=== PATIENT | female | born 1945 | race Caucasian/White ===

== ENCOUNTER 2018-07-17 12:44 | Observation (INO) ==
[2018-07-17 14:09] LABS: Basophils % 0.4 %; Eosinophils # 0.1 K/mcL (0.0-0.6); Eosinophils % 1.4 %; Hematocrit 31.5 % (35.3-44.9); Hemoglobin 10.1 g/dL (11.5-15.4); Immature Granulocytes % 0.6 % (0-4); Lymphocytes # 1.4 K/mcL (0.6-4.6); Lymphocytes % 14.4 %; Mean Corpuscular HGB Conc 32.1 g/dL (31.6-35.5); Mean Corpuscular Hemoglobin 32.5 pg (28.0-33.3); Mean Corpuscular Volume 101.3 fL (83.0-100.0); Mean Platelet Volume 9.5 fL (9.4-12.4); Monocytes # 0.9 K/mcL (0.0-1.3); Monocytes % 9.3 %; Neutrophils # 7.1 K/mcL (1.6-8.9); Platelet Count 218 K/mcL (140-400); Red Blood Count 3.11 M/mcL (3.82-4.97); Segmented Neutrophils % 73.9 %
[2018-07-17 14:27] LABS: Calcium 9.9 mg/dL (8.6-10.3); Potassium 4.2 mEq/L (3.5-5.1)
--- NOTE | 2018-07-17 15:04 | Emergency Department Note ---
Disposition Clinical Impression: Pleural effusion on right Dyspnea Qualifiers: Dyspnea type: unspecified Qualified Code(s): R06.00 - Dyspnea, unspecified Disposition: Admitted As Inpatient Condition: Fair Referrals: Judson Wade DO [Primary Care Provider] - Forms: ED Satisfaction Letter Time of Disposition: 20:19 SOB HPI - General Chief Complaint: ED Shortness of Breath/Dyspnea Stated Complaint: SHORT OF BREATH Time Seen by Provider: 07/17/18 13:11 Source: patient, EMS Mode of arrival: EMS Limitations: physical limitation Nursing Notes Reviewed: Yes Vital Signs Reviewed: Yes - History of Present Illness Pt Subjective Complaint: shortness of breath Onset (ago): week(s) Context: other (Recent diagnosis of cancerous lesion his phone of the tibia. There apparently are some lesions in the long. She was just admitted at [facility] [place] and had the right lung drained of about 2 L of fluid. She felt good when [facility] ago but is progressively return.) Consistency/Duration: gradually worsening Improves with: other (Lying on the bed on her right side.) Worsens with: lying flat, exertion Known history of: COPD Associated symptoms: Reports: cough. Denies: fever, wheezing Treatment prior to arrival: none Cough present: Yes Cough Description: Non-Productive Cough Frequency: Intermittent - Related Data Home Medications Medication Instructions Recorded Confirmed Carvedilol [Coreg] 12.5 mg PO BID 04/01/15 02/27/16 Cetirizine HCl [Zyrtec] 10 mg PO 4XW 04/01/15 02/27/16 Citalopram [CeleXA] 80 mg PO QPM 04/01/15 02/27/16 Aspirin [Adult Low Dose Aspirin EC] 81 mg PO QAM 05/08/15 02/27/16 Cholecalciferol (Vitamin D3) 2,000 unit PO QAM 05/08/15 02/27/16 [Vitamin D3] Omeprazole [PriLOSEC] 40 mg PO DAILY 12/29/15 02/27/16 Spironolactone [Aldactone] 25 mg PO DAILY 12/29/15 07/17/18 Levothyroxine [Synthroid] 88 mcg PO 0630 02/27/16 02/27/16 Biotin 1,000 mcg PO DAILY 07/17/18 07/17/18 Gabapentin [Neurontin] 300 mg PO HS 07/17/18 07/17/18 Mesalamine [Apriso] 0.375 gm PO DAILY 07/17/18 07/17/18 Sevelamer [Renvela] 800 mg PO TIDWM 07/17/18 07/17/18 Sodium Bicarbonate 650 mg PO DAILY 07/17/18 07/17/18 Allergies Allergy/AdvReac Type Severity Reaction Status Date / Time Amoxicillin Allergy Severe Anaphylaxis Verified 06/17/16 08:10 Iodinated Contrast- Oral and Allergy Severe Anaphylaxis Verified 06/17/16 08:10 IV Dye ciprofloxacin [From Cipro] Allergy unknown Verified 06/17/16 08:10 Penicillins Allergy Hypotension Verified 06/17/16 08:10 Xbyshgj-Tlt-Nuv Reductase Allergy See Verified 07/17/18 12:46 Inhibitor Comments [Statins] sulfamethoxazole Allergy Anaphylaxis Verified 06/17/16 08:10 [From Bactrim] trimethoprim [From Bactrim] Allergy Anaphylaxis Verified 06/17/16 08:10 All systems ED: reviewed and negative except as stated. Constitutional: Denies: fever, chills ENT ED: Denies: ear pain, throat pain, congestion Cardiovascular: Denies: chest pain, palpitations Respiratory: Reports: cough, dyspnea Gastrointestinal: Denies: abdominal pain, nausea, vomiting Musculoskeletal: Denies: back pain Integumentary: Denies: rash Neurological: Denies: headache Past Medical History - Past Medical History Attestation: Yes The following information was validated with the patient. 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 Absent: scleral icterus, conjunctival injection - ENT ENT exam: normal exam, normal oropharynx, mucous membranes moist, normal external ear exam - Neck Neck exam: Present: normal inspection, full ROM, trachea midline. Absent: meningismus - Chest Chest inspection: Present: normal inspection, symmetric chest wall rise. Absent: tenderness - Respiratory Respiratory exam: Present: prolonged expiratory phase, other (Decreased breath sounds on the right). Absent: accessory muscle use - Cardiovascular Cardiovascular exam: Present: regular rate, normal rhythm, normal heart sounds - Abdominal Exam Abdominal exam: Present: soft, Non-Tender, normal bowel sounds - Extremities Exam Extremities exam: Absent: pedal edema - Neurological Exam Neurological exam: Present: alert, oriented X3 - Psychiatric Psychiatric exam: Present: normal affect, normal mood - Skin Skin exam: Present: warm, dry. Absent: rash Course Course Narrative: Patient presents with complaint shortness of breath. Significant dyspnea on exertion and she started feeling short of breath when laying down. She has to lay on her right side and she can breathe comfortably but if she lays on her back or on her left side she feels very short of breath. This sounds like an effusion. Patient just got out of [facility] after admission during which she had 2 L of fluid taken off that right long. She has decreased breath sounds on the right. We will go ahead and get a chest x-ray as well as the other lab workup to evaluate shortness of breath. I do not see any indication of infectious disease at this time. But will get cultures as well. Disposition will be based on diagnostic results and reevaluation. - Reevaluation(s) Reevaluation #1: Patient is resting comfortably on the bed on her right side. She has 3 L of oxygen on and her O2 sat is 97% with a pulse of 92. Chest x-ray shows a white out of the right lung she is in need to have this drained again. This is a full return of fluid in matter of a little over a week since it was drained last. She is supposed to be seeing the oncologist tomorrow at [facility] [place] to determine further evaluation and treatment. I think the best thing to do so transfer up to [facility] for thoracentesis and further management. Patient agrees. I spoke with the transfer center at [facility]. They are going to call back to help us arrange that transfer. Time: 15:11 Reevaluation #2: Transfer center called back. They have accepted the patient for transfer to the orthopedic/oncologist service. There are call back with a bed assignment but they think it might take some time to get the bed. We await their call. Time: 15:50 Reevaluation #3: Called [facility] back and they inform us that they are on diversion now and they did not have a bed and will probably not have a bed until tomorrow morning. The patient has already been accepted by her doctor up there, just AT this time. I do not think is appropriate for [facility] emergency department overnight. I spoke to the hospitalist arrange to get her admitted to the floor where she can be monitored and be in a more comfortable environment. When the bed is ready in the morning then we cannot see the transfer. I discussed with the patient and she is comfortable with the plan. Time: 20:19 - Consultations Consultation #1: Dr. Baca, hospitalist - I discussed the case with the hospitalist. He is accepted patient for admission. Time: 20:19 Vital Signs Temperature 98.9 F 07/17/18 12:47 Pulse Rate 96 07/17/18 12:47 Respiratory Rate 18 07/17/18 12:47 Blood Pressure 120/54 07/17/18 12:47 O2 Sat by Pulse Oximetry 99 07/17/18 12:47 Temperature 98.9 F 07/17/18 12:47 Pulse Rate 85 07/17/18 19:49 Respiratory Rate 18 07/17/18 19:49 Blood Pressure 118/56 07/17/18 19:49 O2 Sat by Pulse Oximetry 97 07/17/18 19:49 Oxygen Delivery Oxygen Delivery Room Air Shortness of Breath/Dyspnea - Medical Records Medical records reviewed: Yes I reviewed the patient's medical records. - Lab Data Lab results reviewed: Yes I reviewed the patient's lab results. Result diagrams: 07/17/18 14:03 07/17/18 14:03 Lab Results 07/17/18 07/17/18 07/17/18 Range/Units 14:03 14:03 14:03 WBC 9.6 (4.3-11.1) K/mcL RBC 3.11 L (3.82-4.97) M/mcL Hgb 10.1 L (11.5-15.4) g/dL Hct 31.5 L (35.3-44.9) % MCV 101.3 H (83.0-100.0) fL MCH 32.5 (28.0-33.3) pg MCHC 32.1 (31.6-35.5) g/dL RDW 14.0 (11.5-14.5) % Plt Count 218 (140-400) K/mcL MPV 9.5 (9.4-12.4) fL Immature Gran % 0.6 (0-4) % Seg Neutrophils % 73.9 % Lymphocytes % 14.4 % Monocytes % 9.3 % Eosinophils % 1.4 % Basophils % 0.4 % Neutrophils # 7.1 (1.6-8.9) K/mcL Lymphocytes # 1.4 (0.6-4.6) K/mcL Monocytes # 0.9 (0.0-1.3) K/mcL Eosinophils # 0.1 (0.0-0.6) K/mcL Basophils # 0.0 (0.0-0.2) K/mcL Sodium 139 (136-145) mEq/L Potassium 4.2 (3.5-5.1) mEq/L Chloride 96 L (98-107) mEq/L Carbon Dioxide 37 H (23-29) mEq/L BUN 13 (8-23) mg/dL Creatinine 3.46 H (0.60-1.20) mg/dL Est GFR ( Amer) 16 L (> 60) Est GFR (Non-Af Amer) 13 L (> 60) BUN/Creatinine Ratio 4 L (6-26) Glucose 97 (70-105) mg/dL Calculated Osmolality 288 (280-300) Calcium 9.9 (8.6-10.3) mg/dL Troponin I (< 0.04) ng/mL B-Natriuretic Peptide 244 H (Less than 100) pg/mL 07/17/18 Range/Units 14:03 WBC (4.3-11.1) K/mcL RBC (3.82-4.97) M/mcL Hgb (11.5-15.4) g/dL Hct (35.3-44.9) % MCV (83.0-100.0) fL MCH (28.0-33.3) pg MCHC (31.6-35.5) g/dL RDW (11.5-14.5) % Plt Count (140-400) K/mcL MPV (9.4-12.4) fL Immature Gran % (0-4) % Seg Neutrophils % % Lymphocytes % % Monocytes % % Eosinophils % % Basophils % % Neutrophils # (1.6-8.9) K/mcL Lymphocytes # (0.6-4.6) K/mcL Monocytes # (0.0-1.3) K/mcL Eosinophils # (0.0-0.6) K/mcL Basophils # (0.0-0.2) K/mcL Sodium (136-145) mEq/L Potassium (3.5-5.1) mEq/L Chloride (98-107) mEq/L Carbon Dioxide (23-29) mEq/L BUN (8-23) mg/dL Creatinine (0.60-1.20) mg/dL Est GFR ( Amer) (> 60) Est GFR (Non-Af Amer) (> 60) BUN/Creatinine Ratio (6-26) Glucose (70-105) mg/dL Calculated Osmolality (280-300) Calcium (8.6-10.3) mg/dL Troponin I < 0.03 (< 0.04) ng/mL B-Natriuretic Peptide (Less than 100) pg/mL - Radiology Data Radiology results reviewed: Yes I reviewed the patient's radiology results. - EKG Data EKG attestation: Yes I reviewed and interpreted this EKG. EKG results narrative: Twelve-lead EKG performed at 12:47 PM. Ordered, reviewed and interpreted by ED physician shows sinus rhythm at a rate of 90. Left axis deviation. Good hour progression across precordium. No obvious acute ischemic changes. Intervals are within normal limits.
--- NOTE | 2018-07-17 18:10 | Electrocardiograph Report ---
[place] [id number] Test Date: 2018-07-17 Pat Name: Jessica Parker Department: EDP-16 Room: Gender: F Vice President Diversity: : 1945 Requested By: Taras Palacios Order Number: [id number] Reading MD: Chandan Alicia Measurements Intervals [place] Rate: 90 P: -74 WA: 151 QRS: -34 QRSD: 91 T: 48 QT: 394 QTc: 483 Interpretive Statements Sinus or ectopic atrial rhythm Left axis deviation Borderline prolonged QT interval Electronically Signed On 07-17-2018 18:08:32 EST by Chandan Alicia
[2018-07-17] MEDS ORDERED: Naloxone 0.4 MG/ML INJ IVP PRN (20:38)
[2018-07-17] MEDS ORDERED: Gabapentin 300 MG CAPSULE PO SCH (21:00)
[2018-07-18] MEDS ORDERED: Acetaminophen 325 MG TABLET PO PRN (04:07)
[2018-07-18] MEDS ORDERED: MESALAMINE 0.375 GM PO SCH (09:00)
[2018-07-18] MEDS ORDERED: Spironolactone 25 MG TABLET PO SCH (09:00)
[2018-07-18] MEDS ORDERED: Aspirin Enteric Coated 81 MG Tablet PO SCH (09:00)
--- NOTE | 2018-07-18 10:20 | Internal Med History&Physical ---
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 She will go to [facility] later today for further evaluation and intervention. (2) H/O renal cell carcinoma Current visit: No Status: Chronic Likely source of lesions in liver, bone, and lungs with likely malignant pleural effusion. She will be transferred to [facility] later today. (3) Anemia Current visit: No Status: Chronic She was unaware of this. This can be addressed at [facility]. Qualifiers: Anemia type: other cause Other causes of anemia: other cause, not classified Qualified Code(s): D64.89 - Other specified anemias (4) ESRD (end stage renal disease) on dialysis Current visit: No Status: Chronic Continue MWF hemodialysis. Internal Medicine - H&P: HPI Chief complaint: Dyspnea Admitted From: Emergency Dept Plans for Post Hospital Care: Home History of present illness: Ms. Parker is a 72 year old female who was sent to emergency room from dialysis because of dyspnea which had been increasing over several days. She was evaluated in emergency room and found to have complete opacification of the right hemithorax due to pleural effusion. She was admitted to [facility] floor while awaiting transfer to [facility]. She had 2 L thoracentesis procedure done on the right lung a few weeks ago for pleural effusion. She does not know the results of the fluid analysis. She was diagnosed with renal cell cancer of the right kidney 2013 and underwent partial nephrectomy. Approximately 5 months ago she developed pain in her left leg. 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 She has not yet received XRT to the bone lesion. She reports she has been told she has lesions in her liver and lung most likely metastases from possible renal cell cancer. She denies other known malignancies. She was unaware she had anemia on labs in emergency room. Past Med Surg Social Fam HX - Past Medical History Medical history: renal disease, atrial fibrillation, hyperlipidemia, hypertension, other, TIA, thyroid disease, cancer, CHF Additional medical history: M-W-F dialysis Psychiatric history: depression - Past Surgical History Surgical History: cataract, hip replacement, other Additional surgical history: carpal tunnel surgery bilaterally. 40% of right kidney removed 2013. dialysis port. bilat total hip replacement. nasoplasty - Social History Smoking Status: Light tobacco smoker Smokeless Tobacco Status: No Alcohol use: none Drug use: none - Family History Mother Living Status: Hx Family Cardiac Disorders: Yes Hx Family Respiratory Disorders: Yes Father Hx Family Respiratory Disorders: Yes Internal Medicine - H&P: Meds Carvedilol [Coreg] 12.5 mg PO BID 04/01/15 [History] Cetirizine HCl [Zyrtec] 10 mg PO 4XW 04/01/15 [History] Citalopram [CeleXA] 80 mg PO QPM 04/01/15 [History] Aspirin [Adult Low Dose Aspirin EC] 81 mg PO QAM 05/08/15 [History] Cholecalciferol (Vitamin D3) [Vitamin D3] 2,000 unit PO QAM 05/08/15 [History] Omeprazole [PriLOSEC] 40 mg PO DAILY 12/29/15 [History] Spironolactone [Aldactone] 25 mg PO DAILY 12/29/15 [History] Levothyroxine [Synthroid] 88 mcg PO 0630 02/27/16 [History] Biotin 1,000 mcg PO DAILY 07/17/18 [History] Gabapentin [Neurontin] 300 mg PO HS 07/17/18 [History] Mesalamine [Apriso] 0.375 gm PO DAILY 07/17/18 [History] Sevelamer [Renvela] 800 mg PO TIDWM 07/17/18 [History] Sodium Bicarbonate 650 mg PO DAILY 07/17/18 [History] Allergy/AdvReac Type Severity Reaction Status Date / Time Amoxicillin Allergy Severe Anaphylaxis Verified 06/17/16 08:10 Iodinated Contrast- Oral and Allergy Severe Anaphylaxis Verified 06/17/16 08:10 IV Dye ciprofloxacin [From Cipro] Allergy unknown Verified 06/17/16 08:10 Penicillins Allergy Hypotension Verified 06/17/16 08:10 Xjxsvpz-Itu-Iuh Reductase Allergy See Verified 07/17/18 12:46 Inhibitor Comments [Statins] sulfamethoxazole Allergy Anaphylaxis Verified 06/17/16 08:10 [From Bactrim] trimethoprim [From Bactrim] Allergy Anaphylaxis Verified 06/17/16 08:10 All Systems PM: A 10-system review of systems was performed and is negative for pertinent findings except as documented above in the HPI. Review of systems: Gen.: She states her weight has decreased approximately 10 pounds in the past year Cardiovascular: She has history of hypertension. She has history of atrial fibrillation and underwent ablation procedure approximately 10 years ago. She has maintained NSR since then. She denies AR heart failure DVT or pulmonary embolus Respiratory: She quit smoking approximately April 2018 after starting smoking at age 18. She smoked up to one pack per day. She has been diagnosed with COPD. She uses oxygen as needed. She had recent right pleural effusion d rainage as per history of present illness. GI: She has probable liver metastases as per history of present illness. 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 She has been on hemodialysis for approximately 3 years. She denies other kidney or bladder disorders. Neurologic: She denies large distribution strokes or seizures. Endocrine: She has hypothyroidism but denies diabetes or hyperlipidemia Hematology/oncology: As per history of present illness Psychiatric: She denies anxiety depression or other mental health issues [place] skeletal: She has fibromyalgia but denies gout or other bone joint or muscle disorders. - Constitutional Vitals: Temp Pulse Resp BP Pulse Ox 98 F 85 16 136/70 97 07/18/18 07:01 07/18/18 07:01 07/18/18 07:01 07/18/18 07:01 07/18/18 07:01 Exam: Gen.: She is a well-developed well-nourished female resting comfortably in bed who appears in no acute distress HEENT: Head is atraumatic and normocephalic. Eyes: EOMI. There is no scleral icterus. Mouth: Mucosa is moist. Neck: Supple and nontender. There is no thyromegaly or adenopathy noted. Heart: Regular without murmurs gallops or ectopics Lungs: She has diminished breath sounds in the right lung with dullness to percussion. The left lung is unremarkable. Abdomen: Soft and nontender. No masses or guarding are noted. Extremities: The left lower leg is wrapped in elastic wrap which I did not unw rap. The right leg shows no cyanosis edema or clubbing. Dorsalis pedis and posttibial pulses are trace palpable bilaterally. Neurologic: Mental status: She is talkative and a good historian. Cranial nerves: Smile is symmetric. Forehead wrinkles bilaterally. Tongue protrudes midline. EOMI. Motor: There is no pronator drift. Cerebellar: Finger to nose is intact bilaterally. Skin: Warm and dry Internal Med - H&P Results - Labs CBC & Chem 7: 07/17/18 14:03 07/17/18 14:03 Labs: Short CBC 07/17/18 Range/Units 14:03 WBC 9.6 (4.3-11.1) K/mcL Hgb 10.1 L (11.5-15.4) g/dL Hct 31.5 L (35.3-44.9) % Plt Count 218 (140-400) K/mcL Neutrophils # 7.1 (1.6-8.9) K/mcL BMP 07/17/18 14:03 Sodium 139 Potassium 4.2 Chloride 96 L Carbon Dioxide 37 H BUN 13 Creatinine 3.46 H Glucose 97 Calcium 9.9 Cardiac Enzymes 07/17/18 Range/Units 14:03 Troponin I < 0.03 (< 0.04) ng/mL - Impressions ITS Impressions Chest X-Ray 07/17/18 13:43 IMPRESSION: Complete opacification of the right hemithorax with patchy interstitial opacities at the left lung which may reflect pulmonary edema. D/ / Santosh Chowdhury MD / Santosh Chowdhury MD Interpreting Provider: Santosh Chowdhury MD - VTE Reasons for not Prescribing Prophylaxis: Medical contraindication
[2018-07-18 11:28] VITALS: BP 118/70
--- NOTE | 2018-07-18 15:27 | Discharge Summary ---
Orders not resulted at time of discharge: Pending orders 07/17/18 14:05 Culture,Blood [BC] Stat Date of Encounter: 07/18/18 Time of Encounter: 15:25 - Discharge Diagnosis (1) Pleural effusion on right Priority: Primary Status: Acute (2) H/O renal cell carcinoma Priority: Secondary Status: Chronic (3) Anemia Priority: Secondary Status: Chronic Qualifiers: Anemia type: other cause Other causes of anemia: other cause, not clas sified Qualified Code(s): D64.89 - Other specified anemias (4) ESRD (end stage renal disease) on dialysis Priority: Secondary Status: Chronic Hospital course: Ms. Parker is a 72 year old female who was sent to emergency room from dialysis because of dyspnea which had been increasing over several days. She was evaluated in emergency room and found to have complete opacification of the right hemithorax due to pleural effusion. She was admitted to [facility] floor while awaiting transfer to [facility]. Initial orders were written by the emergency room physician. I saw her on July 18 and performed a history and physical. Word was received the after noon of July 18 that a bed was available at [facility]. She was transferred to [facility] for ongoing care needs. - Time Spent with Patient Total time spent providing and/or coordinating discharge services: - Discharge Medications Prescriptions: No Action Cetirizine HCl [Zyrtec] 10 mg PO 4XW Citalopram [CeleXA] 80 mg PO QPM Carvedilol [Coreg] 12.5 mg PO BID Cholecalciferol (Vitamin D3) [Vitamin D3] 2,000 unit PO QAM Aspirin [Adult Low Dose Aspirin EC] 81 mg PO QAM Omeprazole [PriLOSEC] 40 mg PO DAILY Spironolactone [Aldactone] 25 mg PO DAILY Levothyroxine [Synthroid] 88 mcg PO 0630 Sevelamer [Renvela] 800 mg PO TIDWM Sodium Bicarbonate 650 mg PO DAILY Mesalamine [Apriso] 0.375 gm PO DAILY Gabapentin [Neurontin] 300 mg PO HS Biotin 1,000 mcg PO DAILY Home Medications: Carvedilol [Coreg] 12.5 mg PO BID 04/01/15 [History] Cetirizine HCl [Zyrtec] 10 mg PO 4XW 04/01/15 [History] Citalopram [CeleXA] 80 mg PO QPM 04/01/15 [History] Aspirin [Adult Low Dose Aspirin EC] 81 mg PO QAM 05/08/15 [History] Cholecalciferol (Vitamin D3) [Vitamin D3] 2,000 unit PO QAM 05/08/15 [History] Omeprazole [PriLOSEC] 40 mg PO DAILY 12/29/15 [History] Spironolactone [Aldactone] 25 mg PO DAILY 12/29/15 [History] Levothyroxine [Synthroid] 88 mcg PO 0630 02/27/16 [History] Biotin 1,000 mcg PO DAILY 07/17/18 [History] Gabapentin [Neurontin] 300 mg PO HS 07/17/18 [History] Mesalamine [Apriso] 0.375 gm PO DAILY 07/17/18 [History] Sevelamer [Renvela] 800 mg PO TIDWM 07/17/18 [History] Sodium Bicarbonate 650 mg PO DAILY 07/17/18 [History] Allergies/Adverse Reactions: Allergy/AdvReac Type Severity Reaction Status Date / Time Amoxicillin Allergy Severe Anaphylaxis Verified 06/17/16 08:10 Iodinated Contrast- Oral and Allergy Severe Anaphylaxis Verified 06/17/16 08:10 IV Dye ciprofloxacin [From Cipro] Allergy unknown Verified 06/17/16 08:10 levofloxacin [From Levaquin] Allergy Redness of Verified 07/18/18 14:24 Skin Penicillins Allergy Hypotension Verified 06/17/16 08:10 Lsgyeux-Wxl-Waf Reductase Allergy See Verified 07/17/18 12:46 Inhibitor Comments [Statins] sulfamethoxazole Allergy Anaphylaxis Verified 06/17/16 08:10 [From Bactrim] trimethoprim [From Bactrim] Allergy Anaphylaxis Verified 06/17/16 08:10 Date of admission: 07/17/18 20:30 Primary care physician: Judson Wade DO Consults: 07/17/18 21:19 Consult to Nutrition [CONS] Routine Comment: Consulting Provider: NUTRITION Reason for Dietary Consult: MST Score - Constitutional Vitals: Temp Pulse Resp BP Pulse Ox 98.1 F 89 16 118/70 97 07/18/18 11:24 07/18/18 11:24 07/18/18 11:24 07/18/18 11:24 07/18/18 11:24 - Patient Status Disposition: Transfer Other Condition: Fair - Discharge Instructions - VTE Reasons for not Prescribing Prophylaxis: Medical contraindication
== END 2018-07-18 17:34 | disposition other institution (70) ==
LOC: EMEROOPIK 12:44 → INPPIK 12:44
PROVIDERS: ADMIT Internal Medicine; ATTEND Internal Medicine